=== PATIENT | male | born 1965 | race Caucasian/White ===

== ENCOUNTER 2017-07-25 09:05 | Emergency (ER) | payer OTHER ==
[~2017-07-25] VITALS: Ht 195.6 cm; Wt 104.5 kg
--- NOTE | 2017-07-25 09:07 | ED.REPORT ---
HPI-Chest Pain 40 and Over Date of Service Jul 25, 2017 ED Provider: Cristofer Angel DO Patient is a 51 year old male who presents to the ED sent from via EMS complaining of non-radiating chest pain onset this morning. He states that he was at work when he felt a spasm in his chest that lasted 5-10 minutes. Patient reports that his chest pain is now relieved, but he is feeling anxious due to vacation plans tomorrow. Additional symptoms include near syncope, mild nausea, and SOB. He denies diaphoresis, vomiting, abdominal pain, neck pain, or any other symptoms. He has had similar symptoms several years ago that quickly went away. He was given aspirin prior to arrival. Nursing Notes Stated Complaint: CHEST PAIN Nursing Notes Reviewed: Yes Allergies: Coded Allergies: No Known Allergies (Unverified , 07/25/17) General Time Seen by MD: 09:11 Chief Complaint Chest pain Hx Obtained From: Patient Arrived By: Ambulance Sudden in Onset?: Yes Onset Occurred: 1 - 4 hours ago Location: : Chest right Quality: Painful Radiation: : Does not radiate Severity: Current: No pain currently Severity: Maximum: Moderate Recent Healthcare: No recent hospitalization, Recent doctor visit Similar Sx Previous: Yes Past Medical History Past Medical History Denies Past Surgical History Low back surgery Family History Family history of heart attacks Smoking History Former Smoker Social History Alcohol Use: "Social" Ambulatory Status Independent Review of Systems Respiratory: Reports: Shortness of breath Cardiovascular: Reports: Chest pain GI: Reports: Nausea (mild), Denies: Abdominal pain, Vomiting Musculoskeletal: Denies: Neck pain Skin: Denies Diaphoresis Psychiatric: Reports: Anxiety Complete sys rev & neg: except as marked. Physical Exam Initial Vital Signs Vital Signs (First) Date Time Temp Pulse Resp B/P Pulse Ox O2 Delivery O2 Flow Rate FiO2 07/25/17 09:12 36.7 62 16 141/80 100 Room Air Initial VS: Reviewed Head / Eyes: Atraumatic, Normocephalic Neck: Supple, Full range of motion Extremities: Vascular intact, Neuro intact, No swelling, No tenderness Skin: Warm, Dry, No cyanosis Neurologic: Alert, Oriented, Nonfocal Psychiatric: Mood/affect normal, Behavior normal, Normal thought content General/Constitutional: Awake, Alert Behavior: Positive: Anxious Respiratory / Chest: Atraumatic, Breath sounds NL, Breath sounds = bilat, No respiratory distress Cardiovascular: Heart rate NL, Regular rhythm, Heart sounds NL Abdomen: Soft, Non-tender Interpretation & Diagnostics Lab Results Interpretation Result Diagram: 07/25/17 0918 07/25/17 0918 Test 07/25/17 09:18 07/25/17 11:23 White Blood Count 6.2th/mm3 (3.8-10.1) Red Blood Count 4.98mil/mm3 (4.40-5.80) Hemoglobin 15.4g/dL (13.8-17.2) Hematocrit 43.1% (41.0-50.0) Mean Corpuscular Volume 86.5fL (81-100) Mean Corpuscular Hemoglobin 30.9pg (27.0-35.0) Mean Corpuscular Hemoglobin Concent 35.7% (32.0-37.0) Red Cell Distribution Width 12.7% (12.3-15.4) Platelet Count 281bil/L (150-400) Neutrophils (%) (Auto) 55.5% (40-74) Lymphocytes (%) (Auto) 30.0% (14-46) Monocytes (%) (Auto) 11.9% (4-12) Eosinophils (%) (Auto) 2.1% (0-5) Basophils (%) (Auto) 0.5% (0-3) Sodium Level 135mEq/L (134-144) Potassium Level 4.0mEq/L (3.5-5.2) Chloride Level 99mEq/L (97-108) Carbon Dioxide Level 20mmol/L (18-29) Blood Urea Nitrogen 21mg/dL (6-24) Creatinine 1.09mg/dL (0.76-1.27) Estimat Glomerular Filtration Rate 75mL/min (>59) Glucose Level 121mg/dL (60-99) Calcium Level 9.3mg/dL (8.5-10.1) Magnesium Level 2.1mg/dL (1.6-2.6) Total Bilirubin 0.7mg/dL (0.0-1.2) Aspartate Amino Transf (AST/SGOT) 21U/L (0-50) Alanine Aminotransferase (ALT/SGPT) 18U/L (0-44) Alkaline Phosphatase 49U/L (25-150) Total Protein 7.3g/dL (6.4-8.4) Albumin 4.2g/dL (3.4-5.0) Troponin T < 0.010ug/L (0.0-0.011) ECG Interpretation ECG Interpretation: Sinus rhythm, rate 60 Incomplete RBBB No acute ST changes Unchanged from previous EKG at Urgent Care Time: 09:14 Interpreted by: ED physician X-Ray Chest Interpretation Chest Xray Interpretation: IMPRESSION: 1. No acute cardiopulmonary processes evident. 2. Questionable small right apical nodule versus overlying bone island. Lordotic and lateral views of the chest would be helpful for better evaluation, which may be performed on a nonemergent basis. Dictated by: Bhavesh Tidwell M.D. on 07/25/2017 at 8:40 Approved by: Bhavesh Tidwell M.D. on 07/25/2017 at 8:42 View: Portable, 1 view Interpretation / Wet Read by: Interpret - Radiologist Re-Eval/Medical Decision Med Decision/Clinical Course Single self resolved episode of chest pain, serial troponins negative, EKGs without acute ischemic changes. Patient is feeling better. Patient wishes to be discharged, recommend daily aspirin and close outpatient follow-up. Return and follow-up precautions given. Source of Hx: Old records Time of Eval: 10:25 Patient Status: Condition improved Re-Evaluation/Progress Note: Pt rechecked. Pt reports improvement in his symptoms. Time of Eval: 12:12 Patient Status: Condition improved Re-Evaluation/Progress Note: Patient rechecked. Discussed plan for discharge. Patient understands and agrees with plan. F/U instructions and RTER warnings given. All questions addressed at this time. Counseled Regarding: Diagnosis, Lab results, Need for follow-up, When/why to return to ED Discharge & Departure Primary Impression: Chest pain Chest pain type: unspecified Qualified Code: R07.9 - Chest pain, unspecified Additional Impression: Lung nodule Disposition: Home Discharge Condition All VS Reviewed: Yes Condition: Stable Patient Instructions: Angina (ED) Additional Instructions: Your workup in the ER is reassuring. There is no evidence that you had a heart attack today. You should follow-up closely with a primary care doctor in order to have further testing which would likely include a stress test of your heart. Also follow-up for repeat x-rays of your chest to evaluate for a possible lung nodule. Take 81 mg of aspirin daily. Return to the nearest ER immediately if you develop recurrent chest pain or other concerns Referrals: Inderjit Torres Attestation Portions of this note were transcribed by Angie Damico. I, Dr. Angel, personally performed the history, physical exam and medical decision-making; I reviewed and confirmed the accuracy of the information in the transcribed note. Signed by Ryder Aviles, 07/25/17. Attending Statement Your workup in the ER is reassuring. There is no evidence that you had a heart attack today. You should follow-up closely with a primary care doctor in order to have further testing which would likely include a stress test of your heart. Also follow-up for repeat x-rays of your chest to evaluate for a possible lung nodule. Take 81 mg of aspirin daily. Return to the nearest ER immediately if you develop recurrent chest pain or other concerns copies to: Inderjit Torres Timothy S DO Jul 25, 2017 09:07 Angie Damico Jul 25, 2017 09:20
[2017-07-25] MEDS ORDERED: Ondansetron 2 mg/mL 2 mL Inj IVPUSH ONE (09:10)
[2017-07-25 09:12] VITALS: BP 141/80; PULSE 62; RESP 16; O2SAT 100
[2017-07-25 09:25] LABS: BASOPHILS % (AUTO) 0.5 % (0-3); EOSINOPHILS % (AUTO) 2.1 % (0-5); MONOCYTES % (AUTO) 11.9 % (4-12); Mean Corpuscular Hemoglobin 30.9 pg (27.0-35.0); Mean Corpuscular Volume 86.5 fL (81-100); NEUTROPHILS % (AUTO) 55.5 % (40-74); Platelet Count 281 bil/L (150-400)
--- NOTE | 2017-07-25 09:43 | DRSVH ---
PROCEDURE: X-RAY CHEST ONE VIEW, PORTABLE ([id number]) INDICATIONS: chest pain TECHNIQUE: One view of the chest was acquired. COMPARISON: None. FINDINGS: Surgical changes and devices: None. Lungs and pleura: No pleural effusions or pneumothorax. Lungs are clear. Mild scarring within the lung apices appears to be present. A small nodule within the right lung apex appears to be present, which is overlying the proximal clavicle and 1st right rib and could potentially represent a bone isl and. Mediastinum: Mediastinal contours appear normal. Heart size is normal. Bones and chest wall: No suspicious bony lesions. Overlying soft tissues appear unremarkable. IMPRESSION: 1. No acute cardiopulmonary processes evident. 2. Questionable small right apical nodule versus overlying bone island. Lordotic and lateral views of the chest would be helpful for better evaluation, which may be performed on a nonemergent basis. Dictated by: Bhavesh Tidwell M.D. on 07/25/2017 at 8:40 Approved by: Bhavesh Tidwell M.D. on 07/25/2017 at 8:42
[2017-07-25 09:53] LABS: TROPONIN T 0.01 ug/L (0.0-0.011)
[2017-07-25 10:04] LABS: Magnesium 2.1 mg/dL (1.6-2.6)
[2017-07-25 11:12] VITALS: BP 118/64; PULSE 55; RESP 21; O2SAT 97
[2017-07-25 12:22] VITALS: BP 115/66; PULSE 53; RESP 12; O2SAT 99
== END 2017-07-25 12:20 | disposition home or self-care (01) ==
LOC: SED 09:05 → EDBD 09:05 → SED 12:20
DX: R07.9 Chest pain, unspecified (principal); R91.1 Solitary pulmonary nodule; F41.9 Anxiety disorder, unspecified; R55 Syncope and collapse; R11.0 Nausea; R06.02 Shortness of breath; Z98.890 Other specified postprocedural states; Z87.891 Personal history of nicotine dependence
CPT/HCPCS: 36415; 71010; 80053; 82948; 83735; 84484; 85025; 93005; 96374; 96375; 99285; J2060; J2405